=== PATIENT | male | born 1990 | race Caucasian/White ===

== ENCOUNTER 2016-12-01 08:39 | Inpatient (IN) | payer BC, OTHER ==
[~2016-12-01] VITALS: Ht 188 cm; Wt 79.4 kg
[2016-12-01] MEDS ORDERED: MIRALAX 17 GM POWD.PACK PO PRN (20:00)
[2016-12-01] MEDS ORDERED: MAGNESIUM HYDROXIDE 30 ML LIQUID UDC PO PRN (20:00)
[2016-12-01] MEDS ORDERED: LORAZEPAM 1 MG TABLET PO PRN ×2 (20:00)
[2016-12-01] MEDS ORDERED: MAG HYDROX/AL HYDROX/SIMETH 30 ML LIQUID UDC PO PRN (20:00)
[2016-12-01] MEDS ORDERED: LOPERAMIDE HCL 2 MG CAPSULE PO PRN ×2 (20:00)
[2016-12-01] MEDS ORDERED: IBUPROFEN 400 MG TABLET PO PRN (20:00)
[2016-12-01] MEDS ORDERED: ONDANSETRON ODT 4 MG TAB.RAPDIS SL PRN (20:00)
[2016-12-01] MEDS ORDERED: LORAZEPAM 2 MG/1 ML VIAL IM PRN (20:00)
[2016-12-01] MEDS ORDERED: diphenhydrAMINE 50 MG CAPSULE PO PRN (20:00)
[2016-12-01] MEDS ORDERED: ONDANSETRON 4 MG/2 ML VIAL IM PRN (20:00)
[2016-12-01] MEDS ORDERED: DICYCLOMINE HCL 20 MG TABLET PO PRN (20:00)
--- NOTE | 2016-12-01 20:15 | NUR ---
INTAKE ASSESSMENT BP:133/88, HR:118, RR:20, SpO2:95%, T:98.2 , pt denies pain at this time Pt is in stable condition and able to be admitted on the unit. Unit protocols regarding medications and vital signs every 4 hours were explained. Pt verbalized understanding. Primary nurse to continue admission process upon arrival on the unit.
[2016-12-01 20:37] LABS: BASOPHILS # (AUTO) 0.1 K/uL (0.0-8.0); BASOPHILS % (AUTO) 0.6 % (0.0-2.0); EOSINOPHILS # (AUTO) 0.5 K/uL (0.0-0.7); EOSINOPHILS % (AUTO) 5.5 % (0.0-7.0); HEMATOCRIT 44.5 % (40-50); HEMOGLOBIN 14.8 G/DL (14.0-18.0); LYMPHOCYTES # (AUTO) 4.4 K/UL (0.8-4.8); LYMPHOCYTES % (AUTO) 46.7 % (20.5-51.5); MEAN CORPUSCULAR HEMOGLOBIN 34.7 UUG (27.0-31.0); MEAN CORPUSCULAR HGB CONC 33 g/dL (32.0-37.0); MEAN CORPUSCULAR VOLUME 104.3 FL (82.0-92.0); MONOCYTES # (AUTO) 0.7 K/UL (0.1-1.30); MONOCYTES % (AUTO) 6.9 % (0.0-11.0); NEUTROPHILS # (AUTO) 3.9 K/UL (1.8-8.9); NEUTROPHILS % (AUTO) 40.3 % (38.5-71.5); PLATELET COUNT (AUTO) 344 K/UL (150-450); RED BLOOD CELL COUNT(AUTO) 4.27 MIL/UL (4.7-6.1); WHITE BLOOD COUNT (AUTO) 9.6 K/UL (4.0-11.2)
[2016-12-01 20:46] LABS: BILIRUBIN,TOTAL 0.6 mg/dL (0.2-1.0); CREATININE 1.1 mg/dL (0.6-1.3); MAGNESIUM 1.9 mg/dL (1.8-2.4); POTASSIUM 4.5 mmol/L (3.5-5.1); TOTAL PROTEIN, SERUM 8.3 g/dL (6.4-8.2)
[2016-12-01] MEDS ORDERED: THIAMINE HCL 200 MG/2 ML VIAL IM ONE (21:00)
[2016-12-01 21:12] LABS: THYROID STIMULATING HORMONE 1.642 mIU/mL (0.358-3.740)
[2016-12-01] MEDS ORDERED: LORAZEPAM 1 MG TABLET PO ONE ×2 (22:00→22:30)
--- NOTE | 2016-12-01 22:00 | NUR ---
ADMISSION NOTE Pt arrived ambulatory to the [facility] 3rd floor (accompanied by [facility] staff) at approximately 2030. Pt is a 26 y/o male being admitted for ETOH, Xanax, Cocaine, Inhalants, Kratom, and Marijuana dependence and use. Pt denies having any allergies but reported a PMH of depression, anxiety, bipolar, and insomnia. Pt has no history of seizures, but reported a recent fall about 2 weeks ago. Pt reported not having a primary care physician at this time but stated " I have a psych doctor by the name Refugio Garcia." Pt is unmarried and without children. "I have some college background but I'm not employed at the moment and I live with my mom on and off." Pt arrived with medications from home. Medications reconciled. Pt was then asked about his substance use history including; what substance(s) used, frequency, route, amount, last date used, and last amount used. Pt stated " The drinking got bad when I turned 21 years old. I drink about 2 bottles of wine a day. I had a glass of wine today with dinner before I came. I've been using Xanax for the past 9 years, but its more of a binge. I can go weeks without it and then I just start back taking them for days. I took 4 mg yesterday and then today I only took 2 mg(12/01/16) . I just swallow the pills. I started using Cocaine 2 years ago. I snort it and I don't use it all the time. It's every now and then. I had 0.25 grams yesterday (11/30/16). I started using inhalants 3 months ago and Kratom 1 year ago. I don't use them everyday either. The Kratom comes in a little shot that you drink. I had 1 one of those today(12/01/16) and I had 25 cartridges of the inhalant today (12/01/16). It's like the inhalant they give you at a dentist office. I've been smoking Marijuana since I was 15 years old. I usually just take a bong rip like three times a week, but sometimes it's different. I took a hit today. (12/01/16). " Pt was asked about his most recent treatment history. Pt stated " I was in a mental health treatment and from there I went to a sober living and stayed there for 4 months. That was back in October of 2013." Upon assessment pt is a/o x 4 with no changes in LOC. Pt is mildly intoxicated and smells like alcohol. Pt's skin is moist but intact however pt has a few light bruises about his back and abdomen. Pt also has bilateral scabs on his knees and a scabbed abrasion on his upper back. All intact with no swelling, redness, or bleeding noted. Pt's breathing is even and unlabored. Lung auscultations clear in all lobes. Abdomen soft and non distended. Bowel sounds present in all 4 quadrants. PERRLA noted. Skin turgor indicates adequate hydration and capillary refill is less than 3 seconds. 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 Pt is friendly and open to conversation. Pt denies any pain/discomfort at this time, but stated " I'm starting to get a little anxious. Maybe later I'll need something to just help me wind down." Pt was encouraged to notify staff of any changes in condition or of any concerns. Pt verbalized an understanding. All safety measures in place; side rails up x 2, bed locked and in low position, and call light is within reach. Vitals are as follows: 133/88 HR:118 R:20 T:98.2 O2 SAT: 95 % Pain: 0/10 CIWA: 4 . MD aware of pt's arrival. Will continue to monitor.
[2016-12-01 23:23] LABS: *AMPHETAMINE, URINE NEGATIVE (NEGATIVE); *BARBITURATE, URINE NEGATIVE (NEGATIVE); *CANNABINOID, URINE POSITIVE (NEGATIVE); *COCCAINE, URINE POSITIVE (NEGATIVE); *OPIATE, URINE NEGATIVE (NEGATIVE); *PHENCYCLIDINE SCREEN,URINE NEGATIVE (NEGATIVE)
[2016-12-02] VITALS: BP 117/69
[2016-12-02] MEDS ORDERED: LORAZEPAM 1 MG TABLET ONE (00:54)
--- NOTE | 2016-12-02 01:02 | NUR ---
NURSING NOTE MD order Ativan 2 mg PO x 1 due to pt c/o anxiety. Upon assessment pt had a CIWA score of : 6 . Order noted and carried out. Ativan 2 mg PO x 1 administered. Pt encouraged to notify staff of any changes in condition or of any concerns. Pt verbalized an understanding. All safety measures in place. Will monitor for effectiveness.
--- NOTE | 2016-12-02 02:02 | NUR ---
NURSING NOTE Pt appears more relaxed at this time. Very mild tremors felt. Pt stated " I feel okay right now. I'm ready to fall asleep now." Pt CIWA score is now 2. PRN effective. Pt encouraged to notify staff of any changes in condition or of any concerns. Pt verbalized an understanding. All safety measures in place. Will continue to monitor.
--- NOTE | 2016-12-02 04:00 | NUR ---
VITALS REFUSED/CIWA DEFERRED Pt refused to have vitals taken at this time. Pt was encouraged x 3 with risks and benefits explained but the pt still declined. CIWA assessment deferred until the pt is awake. All safety measures in place. Will continue to monitor. Addendum: 12/02/16 at 0642 by JANES MALDONADO LVN Amended: Links added.
[2016-12-02] MEDS ORDERED: IBUP-1955 PO (05:27)
[2016-12-02] MEDS ORDERED: LAMO200T2 PO (05:27)
[2016-12-02] MEDS ORDERED: DIVA500T2 PO (05:27)
--- NOTE | 2016-12-02 07:05 | NUR ---
END OF SHIFT NOTE Pt is a 26 y/o male being admitted for ETOH, Xanax, Cocaine, Inhalants, Kratom, and Marijuana dependence and use. Pt denies having any allergies but reported a PMH of depression, anxiety, bipolar, and insomnia. Pt was placed on a 5 day Ativan taper that is scheduled to start today. Pt received Ativan 2 mg PO x 1 during the shift for a CIWA score of 6. Pt tolerated dose well. Last CIWA score was 2 (0202). Pt slept for a total of 4 hours. All safety measures in place. Will endorse to the oncoming nurse.
--- NOTE | 2016-12-02 07:20 | NUR ---
Start Of Shift Report received. Pt is a 26 y/o male being admitted for ETOH, Xanax, Cocaine, Inhalants, Kratom, and Marijuana dependence and use. Pt is full code, regular diet on fall precautions. Pt denies having any allergies but reported a PMH of depression, anxiety, bipolar, and insomnia. Pt was placed on a 5 day Ativan taper that is scheduled to start today. Pt received Ativan 2 mg onetime order, medication effective per security shift supervisor nurse, Pts last CIWA was 2 @ 0200. Pt slept for a total of 4 hours last night. All safety measures in place. Will continue to monitor and provide care.
[2016-12-02 08:00] VITALS: BP 110/68
[2016-12-02] MEDS: THIAMINE HCL 100 MG TABLET PO SCH (08:56)
[2016-12-02] MEDS: FOLIC ACID 1 MG TABLET PO SCH (08:56)
[2016-12-02] MEDS: MULTIVITAMINS,THERAPEUTIC TABLET PO SCH (08:56)
[2016-12-02] MEDS: LORAZEPAM 1 MG TABLET PO SCH ×4 (08:57→20:15)
[2016-12-02] MEDS ORDERED: TUBERCULIN,PURIF.PROT.DERIV. 5 TU/0.1 ML TEST ID ONE (09:00)
[2016-12-02 12:00] VITALS: BP 99/59
--- NOTE | 2016-12-02 14:41 | NUR ---
PRN MEDICATION Pt c/o Anxiety presented with agitation and restlessness with a CIWA score of 5 pt requested something for relief, non-pharmacological techniques interventions provided x3 and were not effective. PRN Ativan 1mg administered PO, educated pt about s/e of medication and when to contact nurse. all needs met, all safety measures in place, will continue to monitor.
--- NOTE | 2016-12-02 15:41 | NUR ---
PRN Reassessment Medication effective pt reported relief from anxiety and his score dropped to 4, all needs met will continue to monitor and provide care
[2016-12-02 16:00] VITALS: BP 110/62
--- NOTE | 2016-12-02 19:16 | NUR ---
End Of Shift Report given. Pt is a 26 y/o male being admitted for ETOH, Xanax, Cocaine, Inhalants, Kratom, and Marijuana dependence and use. Pt is full code, regular diet on fall precautions. Pt denies having any allergies but reported a PMH of depression, anxiety, bipolar, and insomnia. Pt was placed on a 5 day Ativan taper , VS monitored closely q 4 hours. Withdrawal symptoms were closely monitored. Initial CIWA 6. Patient encouraged adequate PO fluid intake as tolerated. Patient presented with tremors and anxiety during the day. Last CIWA 4. Per patient, Ativan has been helping him with his withdrawal symptoms. Pt ate all of his meals. PRN Ativan 1mg administered. Patient encouraged to attend group therapies/sessions to learn new coping skills to recent relapse, patient denies SI/HI. Participated in group and therapy sessions. All needs met and attended
--- NOTE | 2016-12-02 19:36 | NUR ---
START OF SHIFT NOTE Pt is a 26 y/o male being admitted for ETOH, Xanax, Cocaine, Inhalants, Kratom, and Marijuana dependence and use. Pt denies having any allergies but reported a PMH of depression, anxiety, bipolar, and insomnia. Pt continues on a 5 day Ativan taper (day 1) and is tolerating it well with no a/e or a/r reported . Pt received Ativan 1 mg PO PRN during the day shift. Last CIWA score: 4 (1600). At this time pt is in his room reading. Pt's skin is dry and intact. Slight tremors noted. Pt denies any pain/discomfort at this time. Pt was encouraged to notify staff of any changes in condition or of any concerns. Pt verbalized an understanding. All safety measures in place. Will continue to monitor.
[2016-12-02 20:00] VITALS: BP 106/68
[2016-12-02] MEDS: DIVALPROEX 500 MG TABLET.DR PO SCH (20:15)
[2016-12-02] MEDS: LAMOTRIGINE 200 MG TABLET PO SCH (20:15)
[2016-12-02] MEDS ORDERED: TRAZODONE 50 MG TABLET PO SCH (23:30)
--- NOTE | 2016-12-02 23:54 | NUR ---
TRAZODONE PRN ADMINISTRATION Pt stated " I can't sleep. Can I try some Trazodone?" Trazodone 50 mg PO PRN was given. Will monitor for effectiveness.
[2016-12-03] VITALS: BP 138/82
--- NOTE | 2016-12-03 00:54 | NUR ---
TRAZODONE PRN REASSESSMENT Pt is asleep in bed with no signs of discomfort/distress noted. Breathing is even and unlabored. PRN effective. Will continue to monitor.
--- NOTE | 2016-12-03 04:00 | NUR ---
VITALS REFUSED/ CIWA DEFERRED Pt refused to have vitals taken at this time. Pt was encouraged x 3 with risks and benefits explained, but the pt still declined. CIWA assessment deferred until pt is awake. Will continue to monitor. Addendum: 12/03/16 at 0651 by JANES MALDONADO LVN Amended: Links added.
--- NOTE | 2016-12-03 06:57 | NUR ---
END OF SHIFT NOTE Pt is a 26 y/o male being admitted for ETOH, Xanax, Cocaine, Inhalants, Kratom, and Marijuana dependence and use. Pt denies having any allergies but reported a PMH of depression, anxiety, bipolar, and insomnia. Pt continues on a 5 day Ativan taper (day 2) and is tolerating medication well with no s/e or a/r reported. Pt received Trazodone 50 mg PO x 1 during the shift for c/o insomnia. Last CIWA score was 2 (0000). Pt slept for a total of 6 hours. All safety measures in place. Will endorse to the oncoming nurse.
--- NOTE | 2016-12-03 07:34 | NUR ---
START OF SHIFT Pt 26 y/o male admitted for etoh, xanax, cocaine, marijuana, kratom, inhalants dependence. Pt received in room on bed with eyes closed resting, but easily arousable to name. Pt alert and oriented to name, place, and time. Perrla. Skin warm and slightly moist to touch. It was reported that pt slept for 6 hours of sleep last night. Bed on lowest position with side rails x2 up for safety. Call light within reach. No distress noted at this time.
[2016-12-03] MEDS: FOLIC ACID 1 MG TABLET PO SCH (08:47)
[2016-12-03] MEDS: MULTIVITAMINS,THERAPEUTIC TABLET PO SCH (08:47)
[2016-12-03] MEDS: THIAMINE HCL 100 MG TABLET PO SCH (08:47)
[2016-12-03] MEDS: LORAZEPAM 1 MG TABLET PO SCH ×3 (08:47→21:14)
[2016-12-03 08:49] VITALS: BP 102/62
[2016-12-03 11:10] LABS: HEPATITIS B SURFACE AG Negative (Negative)
[2016-12-03 12:00] VITALS: BP 99/46
[2016-12-03] MEDS ORDERED: NICOTINE 14 MG/24HR PATCH TD SCH (13:30)
[2016-12-03 13:50] VITALS: BP 161/81
[2016-12-03] MEDS: ACETAMINOPHEN 325 MG TABLET PO PRN (13:54)
[2016-12-03] MEDS: CLONIDINE HCL 0.1 MG TABLET PO PRN (13:55)
--- NOTE | 2016-12-03 14:00 | NUR ---
PRN Pt with BB=800/89. Catapres po prn per MD order given and tolerated well.
--- NOTE | 2016-12-03 14:00 | NUR ---
PRN Pt states has headache 5/10. Motrin po prn per MD order given and tolerated well.
[2016-12-03] MEDS: GABAPENTIN 300 MG CAPSULE PO SCH ×2 (14:08→21:15)
--- NOTE | 2016-12-03 15:00 | NUR ---
PRN EVAL Pt observed walking around unit. No c/o headache noted.
--- NOTE | 2016-12-03 15:00 | NUR ---
PRN EVAL Pt with BP= 130/76.
--- NOTE | 2016-12-03 15:07 | NUR ---
Client was prompted by therapist to attend daily group sessions. Client stated he would make an effort to attend.
--- NOTE | 2016-12-03 15:12 | NUR ---
Therapist prompted client to attend daily group therapy sessions, at 11am and 3:30pm. Client stated he would think about attending.
[2016-12-03 17:34] VITALS: BP 105/61
--- NOTE | 2016-12-03 18:25 | NUR ---
END OF SHIFT Pt 26 y/o male admitted for etoh, xanax, cocaine, marijuana, kraton , and inhalants dependence. Pt alert an oriented to name, place, and time. Perrla. Skin warm and slightly moist to touch. Respirations even and unlabored. Bilateral hand tremors noted slightly. Pt observed mostly in dining room throughout the day. Pt was seen by Dr. Nicole today. Pt is medication compliant and tolerated well. No ASE noted. Bed on lowest position with side rails x2 up for safety. Call light within reach. No distress noted at this time.
[2016-12-03 20:00] VITALS: BP 113/65
--- NOTE | 2016-12-03 20:05 | NUR ---
START OF SHIFT Received report from day shift nurse. Pt attended a group meeting and returned to his room after. He is a 26 yo male admitted to [facility] on 12/01 for ETOH and BZD dependence with a h/o using cocaine, kratom, inhalalants, and marijuana. He is A&O x4 and ambulatory. NKA, full code status, and on a regular diet. On admission he reported using wine 2 bottles per day, xanax various amounts sporadically, cocaine 0.25 grams, inhalants various amounts, kratom various amounts, and marijuana 3x/week. He started a 5 day Ativan taper on 12/02. He presents with hand tremors, moist skin, and mild headache. Taper due tonight.
[2016-12-03] MEDS: LAMOTRIGINE 200 MG TABLET PO SCH (21:15)
[2016-12-03] MEDS: DIVALPROEX 500 MG TABLET.DR PO SCH (21:15)
[2016-12-03] MEDS: CLONIDINE HCL 0.1 MG TABLET PO SCH (21:15)
[2016-12-03] MEDS ORDERED: TRAZODONE 50 MG TABLET PO SCH (23:30)
--- NOTE | 2016-12-03 23:31 | NUR ---
Trazodone administration Pt reports inability to sleep and requested Trazodone. Per pt, Benadryl is not effective. Orders carried out for one time trazodone
[2016-12-03] MEDS ORDERED: TRAZODONE 50 MG TABLET ONE (23:35)
[2016-12-04] VITALS (7 sets, daily range): BP systolic 89–121; BP diastolic 48–86
--- NOTE | 2016-12-04 00:31 | NUR ---
Trazodone reassessment Trazodone effective. Pt is lying in bed resting with eyes closed. Respirations even and unlabored. Safety measures in place.
--- NOTE | 2016-12-04 03:31 | NUR ---
Trazodone reassessment Trazodone effective. Pt is lying in bed resting with eyes closed. Respirations even and unlabored. Safety measures in place. Addendum: 12/04/16 at 0550 by DYLAN CANALES RN Incorrect time documented.
--- NOTE | 2016-12-04 04:00 | NUR ---
0400 Vitals refused. CIWA deferred. Pt refused to be woken for 0400 vitals. He is lying in bed resting with eyes closed. Respirations even and unlabored. CIWA ordered Q4HWA.
--- NOTE | 2016-12-04 07:09 | NUR ---
END OF SHIFT Report provided to day shift nurse. Pt is lying in bed resting. He is a 26 yo male admitted to [facility] on 12/01 for ETOH and BZD dependence with a h/o using cocaine, kratom, inhalants, and marijuana. He is A&O and ambulatory. NKA, full code status, and on a regular diet. Upon admission he admitted to drinking wine 2 bottles per day, using xanax various amounts sporadically, cocaine 0.25 grams, inhalants various amounts, kratom various amounts, and marijuana 3x/week. 5 day Ativan taper was started on 12/02. PRN Trazodone administered. Last CIWA was 2. He drank 1905mL and slept for 7 hours. Fall and seizure precautions in place. Bed is down with call light in reach.
--- NOTE | 2016-12-04 07:30 | NUR ---
START OF SHIFT Pt 26 y/o male admitted for etoh, xanax, cocaine, marijuana, kratom, and inhalants dependence. Pt received awake in room just walking around. Pt alert and oriented to name, place, and time. Perrla. Skin warm and slightly moist to touch. Bilateral hand tremors noted. Pt with c/o chills and sweats. It was reported that pt slept for 7 hours of sleep last night. Bed on lowest position with side rails x2 up for safety. Call light within reach. No distress noted at this time.
[2016-12-04] MEDS: LORAZEPAM 1 MG TABLET PO SCH ×4 (08:26→21:13)
[2016-12-04] MEDS: THIAMINE HCL 100 MG TABLET PO SCH (08:26)
[2016-12-04] MEDS: MULTIVITAMINS,THERAPEUTIC TABLET PO SCH (08:26)
[2016-12-04] MEDS: FOLIC ACID 1 MG TABLET PO SCH (08:26)
[2016-12-04] MEDS: GABAPENTIN 300 MG CAPSULE PO SCH ×3 (08:26→21:14)
[2016-12-04] MEDS: HYDROXYZINE PAMOATE 25 MG CAPSULE PO PRN (18:16)
--- NOTE | 2016-12-04 18:18 | NUR ---
PRN pt with c/o anxiety. made aware with new order for vistaril 25 mg po prn q6 hours for anxiety, noted and carried out.
--- NOTE | 2016-12-04 20:00 | NUR ---
START OF SHIFT Received report from day shift nurse. Pt attended a group meeting and returned to his room after. He is a 26 [address] to [facility] on 12/01 for ETOH and BZD dependence with a h/o using cocaine, kratom, inhalants, and marijuana. He is A&O x4 and ambulatory. NKA, full code status, and on a regular diet. On admission he reported using wine 2 bottles per day, xanax various amounts sporadically, cocaine 0.25 grams, inhalants various amounts, kratom various amounts, and marijuana 3x/week. He started a 5 day Ativan taper on 12/02. He reports mild anxiety, has tremors that can be felt, and moist skin. Fall and seizure precautions in place. Bed is down with call light in reach.
[2016-12-04] MEDS: DIVALPROEX 500 MG TABLET.DR PO SCH (21:13)
[2016-12-04] MEDS: CLONIDINE HCL 0.1 MG TABLET PO SCH (21:13)
[2016-12-04] MEDS: LAMOTRIGINE 200 MG TABLET PO SCH (21:13)
[2016-12-04] MEDS: TRAZODONE 50 MG TABLET PO SCH (22:42)
--- NOTE | 2016-12-04 22:45 | NUR ---
PRN Trazodone Pt reports inability to sleep. PRN Trazodone administered.
--- NOTE | 2016-12-04 23:45 | NUR ---
PRN Trazodone reassessment PRN Trazodone effective. Pt is lying in bed resting with eyes closed. Respirations even and unlabored. Safety measures in place.
[2016-12-05] VITALS: BP 118/62
--- NOTE | 2016-12-05 04:00 | NUR ---
0400 Vitals refused/CIWA deferred Pt refused to be woken for 0400 vitals. He is lying in bed resting with eyes closed. Respirations even and unlabored. CIWA ordered Q4HWA. Safety measures in place.
--- NOTE | 2016-12-05 07:14 | NUR ---
END OF SHIFT Report provided to day shift nurse. Pt is lying in bed resting. He is a 26 yo male admitted to [facility] on 12/01 for ETOH and BZD dependence with a h/o using cocaine, kratom, inhalalants, and marijuana. He is A&O x4 and ambulatory. NKA, full code status, and on a regular diet. On admission he reported using wine 2 bottles per day, xanax various amounts sporadically, cocaine 0.25 grams, inhalants various amounts, kratom various amounts, and marijuana 3x/week. He started a 5 day Ativan taper on 12/02. Pt has a positive outlook toward his treatment. Taper is working well to mange symptoms. Last CIWA was 2. He drank 500mL and slept for 7 hours. Safety measures in place. Bed is down with call light in reach.
--- NOTE | 2016-12-05 07:30 | NUR ---
START OF SHIFT Pt 26 y/o male admitted for etoh, xanax, cocaine, marijuana, kratom, and inhalants dependence. Pt received in room on bed with eyes closed resting, but easily arousable to name. Pt alert and oriented to name, place, and time. Perrla. Skin warm and slightly moist to touch. Bilateral hand tremors noted. Pt with c/o chills and sweats. It was reported that pt slept for 7 hours of sleep last night. Bed on lowest position with side rails x2 up for safety. Call light within reach. No distress noted at this time.
[2016-12-05 08:02] VITALS: BP 93/41
[2016-12-05] MEDS: MULTIVITAMINS,THERAPEUTIC TABLET PO SCH (08:32)
[2016-12-05] MEDS: FOLIC ACID 1 MG TABLET PO SCH (08:32)
[2016-12-05] MEDS: THIAMINE HCL 100 MG TABLET PO SCH (08:32)
[2016-12-05] MEDS: LORAZEPAM 1 MG TABLET PO SCH ×4 (08:32→21:10)
[2016-12-05] MEDS: GABAPENTIN 300 MG CAPSULE PO SCH ×3 (08:32→21:11)
[2016-12-05 08:36] VITALS: BP 100/52
[2016-12-05 13:21] VITALS: BP 94/62
--- NOTE | 2016-12-05 14:48 | NUR ---
ATIVAN Pt refused ativan 1 mg po due at 1500. Pt stated he will skip this dose and will take the next dose tonight at 2100.
--- NOTE | 2016-12-05 16:16 | NUR ---
Therapist prompted client to attend daily group sessions, and client stated that he would make an effort to attend.
[2016-12-05 17:37] VITALS: BP 136/91
--- NOTE | 2016-12-05 18:09 | NUR ---
END OF SHIFT Pt 26 y/o male admitted for etoh, xanax, cocaine, marijuana, kraton , and inhalants dependence. Pt alert an oriented to name, place, and time. Perrla. Skin warm and slightly moist to touch. Respirations even and unlabored. Bilateral hand tremors noted slightly. Pt observed mostly in dining room throughout the day. Pt was seen by MD today. Pt is medication compliant and tolerated well. No ASE noted. Bed on lowest position with side rails x2 up for safety. Call light within reach. No distress noted at this time.
[2016-12-05 20:00] VITALS: BP 116/78
--- NOTE | 2016-12-05 20:00 | NUR ---
1999 Patient received awake, alert and just returning ambulatory to his room # [id number] [facility], in recreation room. Gait is steady, brisk. Patient responds to nurse's greeting and introduction with a smile and, " Okay, hi, yes I'm Max". Patient is oriented to person, place, day, date, time and his personal situation. Patient's color is pink and his skin is warm, dry and intact. Patient states that he has been attending groups regularly and he states further that he is eating his regular diet trays and taking fluids ad hoang with no gastric issues so far. Vital signs are: 97.8-78-16 116/78 O2 Sat 98%, CIWA 2 . Patient denies any pain or other discomforts and he offers no requests for or c/o anything at this time. Patient is friendly, cooperative and verbally appropriate when interacting with nurse. Patient was admitted on 12/01/16 for: Alcohol, Cocaine, Xanax, Marijuana and various Inhalants withdrawal and he is currently on a 5-Day Ativan medication taper, which he is apparently tolerating well thus far. Bed is locked and in lowest position, bed rails are up X 1 and call light within patient's easy reach.
[2016-12-05] MEDS: CLONIDINE HCL 0.1 MG TABLET PO SCH (21:00)
[2016-12-05] MEDS: LAMOTRIGINE 200 MG TABLET PO SCH (21:10)
[2016-12-05] MEDS: TRAZODONE 50 MG TABLET PO SCH (21:10)
[2016-12-05] MEDS: DIVALPROEX 500 MG TABLET.DR PO SCH (21:10)
[2016-12-06] VITALS: BP 131/94
--- NOTE | 2016-12-06 04:00 | NUR ---
Patient refused to be awakened for V/S to be done at this time.
--- NOTE | 2016-12-06 06:30 | NUR ---
0630 Patient slept a total of 4 hours and 15 minutes, and he had 1 void and 1 stools. Total intake was 500 ml p.o. Patient had no PRN medications given to him this shift. V/SS afebrile, last CIWA was 1 at 0000. Patient is presently sleeping in stable condition with eyes closed and respirations quiet, even, unlabored at 12.
--- NOTE | 2016-12-06 08:00 | NUR ---
START OF SHIFT Rcvd endorsement from ongoing nurse, 26 y/o male admitted for alcohol withdrawal, lisset is on last day of 5 Ativan taper. tolerating well, with no ASE, last CIWA 1 @ 1999. lisset had an uneventful night, he slept 4 hrs. Client is in bed, a/o x4. he presents with depressed mood, flat affect, shhe denies any N/V/D. He denies any SI/HI. Client with moist skin, abdomen soft, nontender, quadrant x 4 active, he reports restless legs, abdominal cramps, and fatigue. Encourage client to increase fluid intake as tolerated to facilitate detox. Encourage client to attend group therapy for skills to maintain sobriety. He denies any history of withdrawal induced seizures. Client is on seizure precautions. NKA, full code, regular diet. Call light within reach. Side rails x 2 up/padded. Will continue to monitor.
[2016-12-06 08:18] VITALS: BP 102/66
[2016-12-06] MEDS: GABAPENTIN 300 MG CAPSULE PO SCH ×3 (09:00→21:06)
[2016-12-06] MEDS: LORAZEPAM 1 MG TABLET PO SCH ×2 (09:00→21:05)
--- NOTE | 2016-12-06 09:50 | NUR ---
Client refused Ativan 1mg and Gabapentin 300mg stating "I do not feel that bad, I think I can manage without the medications." Risk/benefits discuss, but he still refused the medications.
[2016-12-06] MEDS: MULTIVITAMINS,THERAPEUTIC TABLET PO SCH (09:51)
[2016-12-06] MEDS: THIAMINE HCL 100 MG TABLET PO SCH (09:51)
[2016-12-06] MEDS: FOLIC ACID 1 MG TABLET PO SCH (09:51)
--- NOTE | 2016-12-06 10:00 | NUR ---
MD Notification Dr. Gaston notified that client refused Ativan 1mg and Gabapentin.
[2016-12-06 12:37] VITALS: BP 130/88
[2016-12-06] MEDS: CLONIDINE HCL 0.1 MG TABLET PO PRN (14:29)
[2016-12-06] MEDS: HYDROXYZINE PAMOATE 25 MG CAPSULE PO PRN (14:29)
--- NOTE | 2016-12-06 14:29 | NUR ---
PRN Vistaril 25mg, Clonidine 0.1mg, Bentyl 20mg Client reports anxiety, irritability, chills and abdominal spasms, above medications administered PO, will continue to monitor. Call light within reach.
--- NOTE | 2016-12-06 15:29 | NUR ---
Reassessment PRN Vistaril 25mg, Clonidine 0.1mg, Bentyl 20mg Client is in bed, he appears calm, watching TV, he stated "I feel less anxious, and no more abdominal spasms, thank you." Above medications effective.
[2016-12-06 16:55] VITALS: BP 120/69
--- NOTE | 2016-12-06 19:18 | NUR ---
END OF SHIFT Will endorse client to incoming nurse, client is in room, a/o x 4, he continues to present with depressed mood, flat affect. he denies any N/V/D, he denies any SI/HI. PRN Vistaril 25mg, Clonidine 0.1mg, Bentyl 20mg for anxiety, irritability, chills and abdominal spasms, noted effective. He is on 4th of 5 day Ativan taper, tolerating well, last CIWA 2 @ 1700. Client is fully ambulatory. Client was compliant with group therapy. Adequate PO intake 1500mL, void x 3, stool x 1. Call light within reach. Safety measures rendered and all needs met.
[2016-12-06 20:00] VITALS: BP 113/68
--- NOTE | 2016-12-06 20:00 | NUR ---
1999 Patient received awake, alert and ambulating back to his room # [id number] from [facility] [facility] in recreation room. Gait is steady. Upon seeing nurse, patient states, " You my nurse again tonight? Did you know that I'm leaving tomorrow?" Patient is oriented to person, place, day, date, time and his personal situation. Patient color is pink and his skin is warm, dry and intact. Patient states that he continues to attend all [facility] groups regularly and he states further that he continues to eat all of his regular diet trays and take fluids ad hoang with no gastric issues. Vital signs are: 98.2-83-16 113/68, O2 Sat 100%, CIWA 1. Patient denies any pain or other discomforts and he offers no requests or complaints. Patient was admitted on 12/01/16 for Alcohol, Xanax, Cocaine, Various Inhalants and Marijuana withdrawal and his 5-Day Ativan medication taper has been completed at this time. Patient is friendly, cooperative and verbally appropriate when interacting with nurse. Bed is locked and in lowest position, bed rails are up X 1 and call light within easy reach of patient.
[2016-12-06] MEDS: DIVALPROEX 500 MG TABLET.DR PO SCH (21:06)
[2016-12-06] MEDS: TRAZODONE 50 MG TABLET PO SCH (21:06)
[2016-12-06] MEDS: LAMOTRIGINE 200 MG TABLET PO SCH (21:06)
[2016-12-06] MEDS: CLONIDINE HCL 0.1 MG TABLET PO SCH (21:06)
--- NOTE | 2016-12-07 | NUR ---
Patient refused to be awakened for V/S to be done at this time.
--- NOTE | 2016-12-07 04:00 | NUR ---
Patient refused to be awakened for V/S to be done at this time.
--- NOTE | 2016-12-07 06:30 | NUR ---
0630 Patient slept a total of 5.5 hours and he had 2 voids and no stools. Total intake was 1,500 ml p.o. No prn medications given. V/SS afebrile, last CIWA 1 at 1999. Patient is presently sleeping comfortably with eyes closed and respirations even, unlabored at 12.
--- NOTE | 2016-12-07 07:50 | NUR ---
START OF SHIFT NOTE Received report from night nurse, 26 year old male admitted for ETOH and BZD dependence with a h/o using cocaine, kratom, inhalants, and marijuana. pt completed with 5 days Ativan taper. Pt did not receive any PRN, last CIWA score-1, Slept for 5 hours. Received patient alert and oriented x4, Educated regarding plan of care for the day and medication regimen. Safety measures in place. call light within reach, Will continue to monitor.
[2016-12-07 08:00] VITALS: BP 97/61
[2016-12-07] MEDS: GABAPENTIN 300 MG CAPSULE PO SCH ×3 (08:23→20:17)
[2016-12-07] MEDS: MULTIVITAMINS,THERAPEUTIC TABLET PO SCH (08:23)
[2016-12-07] MEDS: FOLIC ACID 1 MG TABLET PO SCH (08:23)
[2016-12-07] MEDS: THIAMINE HCL 100 MG TABLET PO SCH (08:23)
[2016-12-07] MEDS ORDERED: GABA-534 PO (10:27)
[2016-12-07] MEDS ORDERED: HYDR-3895 PO (10:27)
[2016-12-07] MEDS ORDERED: TRAZ-144 PO (10:27)
[2016-12-07] MEDS ORDERED: CLON0.1T14 PO (10:27)
[2016-12-07 12:00] VITALS: BP 111/56
--- NOTE | 2016-12-07 12:15 | NUR ---
Clinician encouraged client to attend the afternoon group. Client responded that he had slept in but would try to attend the p.m. group.
[2016-12-07 14:49] LABS: *AMPHETAMINE, URINE NEGATIVE (NEGATIVE); *BARBITURATE, URINE NEGATIVE (NEGATIVE); *CANNABINOID, URINE POSITIVE (NEGATIVE); *COCCAINE, URINE NEGATIVE (NEGATIVE); *OPIATE, URINE NEGATIVE (NEGATIVE); *PHENCYCLIDINE SCREEN,URINE NEGATIVE (NEGATIVE)
[2016-12-07 16:00] VITALS: BP 118/73
--- NOTE | 2016-12-07 19:04 | NUR ---
END OF SHIFT NOTE Gave report to night nurse, 26 year old male admitted for ETOH and BENZO dependence with a h/o using cocaine, kratom, inhalants, and marijuana. pt completed with 5 days Ativan taper. Pt did not receive any PRN. Pt scheduled for discharge in AM urine drug screen completed and placed in the chart. Last CIWA score noted -1. Encourage Po fluids as tolerated. Pt remained compliant with plan of care. All safety measures in place, Call light within reach. Pt endorsed to night nurse in stable condition.
[2016-12-07 20:00] VITALS: BP 123/76
--- NOTE | 2016-12-07 20:00 | NUR ---
START OF SHIFT NOTE PATIENT ALERT AND ORIENTED X 4. RESPIRATION EVEN AND UNLABORED. PATIENT C/O HEADACHE 09/23 BUT OTHERWISE HE'S ALRIGHT AND HE'S LEAVING TOMORROW. NO N/V. RECEIVED REPORT FROM DAY SHIFT NURSE . PATIENT IS A 26 YEAR OLD MALE, ADMITTED FOR ETOH/XANAX/COCAINE/MARIJUANA,KRATOM AND INHALANTS DEPENDENCE. PATIENT COMPLETED HIS 5 DAY ATIVAN TAPER. PATIENT IS MEDICALLY CLEARED TO BE DISCHARGED TOMORROW. PATIENT ON FALL/SEIZURE PRECAUTION. PATIENT DID NOT REQUIRE ANY PRN MEDICATION. LAST CIWA 1. SKIN INTACT. ON FALL/SEIZURE PRECAUTION. SAFETY MEASURES IN PLACE. CALL LIGHT IN REACH. WILL CONTINUE TO MONITOR.
[2016-12-07] MEDS: ACETAMINOPHEN 325 MG TABLET PO PRN (20:16)
[2016-12-07] MEDS: DIVALPROEX 500 MG TABLET.DR PO SCH (20:16)
--- NOTE | 2016-12-07 20:16 | NUR ---
PRN TYLENOL ADMINISTRATION PATIENT C/O HEADACHE 09/23. PRN TYLENOL GIVEN. WILL MONITOR FOR EFFECTIVENESS
[2016-12-07] MEDS: TRAZODONE 50 MG TABLET PO SCH (20:17)
[2016-12-07] MEDS: LAMOTRIGINE 200 MG TABLET PO SCH (20:17)
[2016-12-07] MEDS: CLONIDINE HCL 0.1 MG TABLET PO SCH (20:17)
--- NOTE | 2016-12-07 21:16 | NUR ---
PRN TYLENOL RE-ASSESSMENT PATIENT STATES TYLENOL HELPFUL. NO HEADACHE AT THIS TIME. WILL CONTINUE TO MONITOR.
[2016-12-08] VITALS: BP 121/68
--- NOTE | 2016-12-08 07:10 | NUR ---
END OF SHIFT NOTE PATIENT REMAIN ALERT AND ORIENTED X 4. RESPIRATION EVEN AND UNLABORED. PATIENT C/O HEADACHE 09/23 BUT OTHERWISE HE'S ALRIGHT BEGINNING OF SHIFT . PATIENT IS A 26 YEAR OLD MALE, ADMITTED FOR ETOH/XANAX/COCAINE/MARIJUANA,KRATOM AND INHALANTS DEPENDENCE. PATIENT COMPLETED HIS 5 DAY ATIVAN TAPER. PATIENT IS MEDICALLY CLEARED TO BE DISCHARGED TODAY. PATIENT ON FALL/SEIZURE PRECAUTION. PATIENT WAS GIVEN PRN TYLENOL FOR HEADACHE,EFFECTIVE. SKIN INTACT. PATIENT COMPLIANT WITH MEDICATION AND TREATMENT PLAN. ON FALL/SEIZURE PRECAUTION. SAFETY MEASURES IN PLACE. CALL LIGHT IN REACH. WILL CONTINUE TO MONITOR. SLEPT 6 HOURS. FLUID INTAKE 2,200 ML. VOIDED X 2. NO BM. LAST CIWA 1 .
--- NOTE | 2016-12-08 07:48 | NUR ---
START OF SHIFT Received report from night nurse. 26 year old male patient admitted on 12/01/16 for ETOH, Xanax, Cocaine, inhalants, Kratom, and marijuana. Pt has completed 5 day Ativan taper and is medically cleared for discharge. Pt does not present with acute s/s of withdrawals. Most recent CIWA is 1. PRN Tylenol was administered and effective. No acute overnight events. Pt slept for 6 hours. Pt remains safe throughout hospitalization. All needs met, will continue to monitor.
[2016-12-08] MEDS: GABAPENTIN 300 MG CAPSULE PO SCH (08:40)
[2016-12-08] MEDS: THIAMINE HCL 100 MG TABLET PO SCH (08:40)
[2016-12-08] MEDS: MULTIVITAMINS,THERAPEUTIC TABLET PO SCH (08:40)
[2016-12-08] MEDS: FOLIC ACID 1 MG TABLET PO SCH (08:40)
[2016-12-08] MEDS: ACETAMINOPHEN 325 MG TABLET PO PRN (08:43)
--- NOTE | 2016-12-08 08:44 | NUR ---
PRN TYLENOL Pt c/o of 08/24 back pain stating "I may have slept wrong." PRN Tylenol administered as ordered. Will reassess.
[2016-12-08 08:45] VITALS: BP 104/69
--- NOTE | 2016-12-08 09:34 | NUR ---
D/C NOTE Pt is A/O x4. V/S remain WNL. Pt denies SI/HI or hallucinations. Pt shows no s/s of acute withdrawal at this time, and is stable. has medically cleared pt for d/c. Education on Hepatitis C, smoking cessation and medication side effects provided. Pt verbalizes understanding. All pt belongings are in belonging bag, including prescriptions, and home medications. Refuses PNU vaccination. Pt is being accompanied by CRIM[facility]IST at this time to be transported to rehab. Pt states PRN Tylenol was effective. All needs met.
== END 2016-12-08 09:34 | disposition other institution (70) | DRG 895 ==
LOC: SRC 19:39
PROVIDERS: ADMIT Internal Medicine; ATTEND Internal Medicine
PROC: HZ2ZZZZ Detoxification Services for Substance Abuse Treatment (ICD-10-PCS; principal; 2016-12-01)
PROC: HZ41ZZZ Group Counseling for Substance Abuse Treatment, Behavioral (ICD-10-PCS; 2016-12-04)
PROC: HZ31ZZZ Individual Counseling for Substance Abuse Treatment, Behavioral (ICD-10-PCS; 2016-12-04)
DX: F10.230 Alcohol dependence with withdrawal, uncomplicated (principal); F13.230 Sedative, hypnotic or anxiolytic dependence with withdrawal, uncomplicated; Y90.9 Presence of alcohol in blood, level not specified; F12.10 Cannabis abuse, uncomplicated; F31.9 Bipolar disorder, unspecified; G47.00 Insomnia, unspecified; F17.210 Nicotine dependence, cigarettes, uncomplicated; Z65.3 Problems related to other legal circumstances; F14.10 Cocaine abuse, uncomplicated; I15.9 Secondary hypertension, unspecified
CPT/HCPCS: 36415; 70030-TC; 71010; 80164; 80307; 80346; 80349; 80353; 83690; 83735; 84443; 85025; 86592; 86705; 86803; 87340; 87806; A4663; G0480